=== PATIENT | male | born 1960 | race Caucasian/White ===

== ENCOUNTER 2019-02-24 13:53 | Outpatient (RCR) | payer MEDICAID, SELFPAY | END 2019-02-24 23:59 | disposition home or self-care (01) | LOC: ANHAUDIO 13:53 | PROVIDERS: PCP Otolaryngology; Visit Provider Otolaryngology | DX: Z46.1 Encounter for fitting and adjustment of hearing aid (principal) | CPT/HCPCS: 99002; V5160; V5261; V5264 ==

== ENCOUNTER 2019-09-10 11:52 | Outpatient (CLI) | payer MEDICARE, MEDICAID, SELFPAY | END 2019-09-10 11:53 | disposition home or self-care (01) | PROVIDERS: PCP Otolaryngology | DX: H90.3 Sensorineural hearing loss, bilateral (principal) | CPT/HCPCS: 92557; 92567 ==

== ENCOUNTER 2020-12-09 12:55 | Outpatient (CLI) | payer MEDICARE, MEDICAID, SELFPAY | END 2020-12-09 12:56 | disposition home or self-care (01) | LOC: ANHBWCAUD 12:56 | DX: H90.3 Sensorineural hearing loss, bilateral (principal) | CPT/HCPCS: 92557; 92567 ==

== ENCOUNTER 2021-01-14 12:50 | Outpatient (RCR) | payer MEDICARE, MEDICAID, SELFPAY | END 2021-04-14 23:59 | disposition home or self-care (01) | LOC: ANHBWCAUD 12:50 | DX: Z46.1 Encounter for fitting and adjustment of hearing aid (principal) | CPT/HCPCS: V5264 ==

== ENCOUNTER 2022-03-07 07:30 | Outpatient (RCR) | payer MEDICARE, MEDICAID, SELFPAY | END 2022-05-29 23:59 | disposition home or self-care (01) | LOC: ANHBWCAUD 07:30 | DX: Z46.1 Encounter for fitting and adjustment of hearing aid (principal) | CPT/HCPCS: 99199; V5014 ==

== ENCOUNTER 2022-08-30 09:25 | Outpatient (CLI) | payer MEDICARE, MEDICAID, SELFPAY | END 2022-08-30 09:26 | disposition home or self-care (01) | LOC: ANHBWCAUD 09:26 | DX: H90.3 Sensorineural hearing loss, bilateral (principal) | CPT/HCPCS: 92557; 92567 ==

== ENCOUNTER 2022-10-31 10:00 | Outpatient (RCR) | payer MEDICARE, MEDICAID, SELFPAY | END 2022-12-19 23:59 | disposition home or self-care (01) | LOC: ANHBWCAUD 10:00 | DX: Z46.1 Encounter for fitting and adjustment of hearing aid (principal) | CPT/HCPCS: 99199; V5264 ==